=== PATIENT | female | born 1975 | race Caucasian/White ===

== ENCOUNTER 2018-02-03 14:56 | Emergency (ER) | payer BC ==
[2018-02-03] MEDS ORDERED: MORPHINE SULFATE 4 MG/ML DISP.SYRIN. IV ONE (15:30)
[2018-02-03] MEDS ORDERED: ONDANSETRON PF 4 MG/2 ML VIAL. IV ONE (15:30)
--- NOTE | 2018-02-03 15:54 | RAD ---
Three-view left wrist radiographs 02/03/2018 Clinical history: Left wrist pain post fall. Portable AP, lateral and oblique digital radiographs of left wrist were obtained. An acute comminuted fracture the distal left radial metaphysis is seen. Fracture appears to extend into the radiocarpal joint. Moderate dorsal displacement and angulation of the major distal fracture fragment is seen. Fracture fragments are slightly impacted. No additional fracture is noted. Impression: Acute comminuted fracture of the distal left radial metaphysis.
--- NOTE | 2018-02-03 15:57 | RAD ---
Three-view right hand radiographs 02/03/2018 Clinical history: Right hand pain post fall. PA, lateral and oblique digital radiographs of the right hand were obtained. No fracture or dislocation of the right hand is seen. No radiopaque foreign body is noted. Impression: No fracture or dislocation of the right hand is seen.
[2018-02-03] MEDS ORDERED: IV NORMAL SALINE 1,000ML 1,000 ML IV ONE (16:00)
[2018-02-03] MEDS ORDERED: HYDROmorphone PF 2 MG/ML VIAL IV ONE (16:15)
[2018-02-03] MEDS ORDERED: ETOMIDATE 40 MG/20 ML VIAL. IV ONE (16:15)
--- NOTE | 2018-02-03 16:25 | PHYS DOC ---
Past History Past Medical History: No Pertinent History Smoking: Non-smoker Adult General Chief Complaint Chief Complaint: WRIST PAIN HPI HPI 42 year old right-handed female patient states she slipped on ice and landed on her left hand with severe pain in his left wrist and moderate pain in her right , without head injury or loss of consciousness and neurovascular deficit. Treated her pain 10 over 10 and states the pain getting worse with movement. Review of Systems Review of Systems Constitutional: Denies fever or chills [] Eyes: Denies change in visual acuity, redness, or eye pain [] HENT: Denies nasal congestion or sore throat [] Respiratory: Denies cough or shortness of breath [] Cardiovascular: No additional information not addressed in HPI [] GI: Denies abdominal pain, nausea, vomiting, bloody stools or diarrhea [] : Denies dysuria or hematuria [] Musculoskeletal: Denies back pain , reports joint pain [] Integument: Denies rash or skin lesions [] Neurologic: Denies headache, focal weakness or sensory changes [] Endocrine: Denies polyuria or polydipsia [] All other systems were reviewed and found to be within normal limits, except as documented in this note. Current Medications Current Medications Current Medications Medications (Trade) Dose Ordered Sig/Tibmo Start Time Stop Time Status Last Admin Dose Admin Etomidate (Amidate) 10 mg 1X ONCE 02/03/18 16:15 02/03/18 16:16 Hydromorphone HCl (Dilaudid) 2 mg 1X ONCE 02/03/18 16:15 02/03/18 16:16 Morphine Sulfate (Morphine 4mg Syringe) 4 mg 1X ONCE 02/03/18 15:30 02/03/18 16:07 DC 02/03/18 15:25 4 MG Ondansetron HCl (Zofran) 4 mg 1X ONCE 02/03/18 15:30 02/03/18 16:07 DC 02/03/18 15:27 4 MG Sodium Chloride 1,000 ml @ 1,000 mls/hr 1X ONCE 02/03/18 16:00 02/03/18 16:59 Allergies Allergies Allergies Coded Allergies Type Severity Reaction Last Updated Verified No Known Drug Allergies 02/03/18 No Physical Exam Physical Exam Constitutional: Well developed, well nourished, moderate distress, non-toxic appearance. [] HENT: Normocephalic, atraumatic Eyes: PERRLA, EOMI, conjunctiva normal, no discharge. [] Neck: Normal range of motion, no tenderness, supple, no stridor. [] Cardiovascular:Heart rate regular rhythm, no murmur [] Lungs & Thorax: Bilateral breath sounds clear to auscultation [] Abdomen: Bowel sounds normal, soft, no tenderness, no masses, no pulsatile masses. [] Skin: Warm, dry, no erythema, no rash. [] Back: No tenderness, no CVA tenderness. [] Extremities: Left wrist with obvious deformity and tenderness and edema and limited range of motion, normal neurovascular deficit, right hand without deformity, mild tenderness in the thenar area without contusion Neurologic: Alert and oriented X 3, normal motor function, normal sensory function, no focal deficits noted. [] Psychologic: Affect normal, judgement normal, mood normal. [] EKG EKG [] Radiology/Procedures Radiology/Procedures [][place] [address] IMAGING REPORT Signed PATIENT: EDWARD DRAPER ACCOUNT: [id number] : 1975 LOCATION: ER AGE: 42 SEX: F EXAM STATUS: REG ER ORD. PHYSICIAN: BONNIE LUDWIG MD REASON: injury PROCEDURE: HAND RIGHT 3V Three-view right hand radiographs 02/03/2018 Clinical history: Right hand pain post fall. PA, lateral and oblique digital radiographs of the right hand were obtained. No fracture or dislocation of the right hand is seen. No radiopaque foreign body is noted. Impression: No fracture or dislocation of the right hand is seen. DICTATED AND SIGNED BY: DANNY DOE MD DATE: 02/03/18 1554 CC: BONNIE LUDWIG MD; NON,STAFF ~ [address] [address] IMAGING REPORT Signed PATIENT: EDWARD DRAPER ACCOUNT: [id number] : 1975 LOCATION: ER AGE: 42 SEX: F EXAM STATUS: REG ER ORD. PHYSICIAN: BONNIE LUDWIG MD REASON: injury PROCEDURE: WRIST 3V LEFT Three-view left wrist radiographs 02/03/2018 Clinical history: Left wrist pain post fall. Portable AP, lateral and oblique digital radiographs of left wrist were obtained. An acute comminuted fracture the distal left radial metaphysis is seen. Fracture appears to extend into the radiocarpal joint. Moderate dorsal displacement and angulation of the major distal fracture fragment is seen. Fracture fragments are slightly impacted. No additional fracture is noted. Impression: Acute comminuted fracture of the distal left radial metaphysis. DICTATED AND SIGNED BY: DANNY DOE MD DATE: 02/03/18 1433 CC: BONNIE LUDWIG MD; NON,STAFF ~ Course & Med Decision Making Course & Med Decision Making Pertinent Imaging studies reviewed. (See chart for details) Evaluation of patient in ER showed 42-year-old female patient with a fall and left wrist deformity. Patient had comminuted fracture of the distal radius and under conscious sedation reduction performed and splint was applied with good alignment. Patient instructed to follow-up with on-call orthopedic physician in one or 2 days. discharge: I've spoken with the patient and/or caregivers. I've explained the patient's condition, diagnosis and treatment plan based on information available to me at this time. I've answered the patient's and/or caregivers questions and addressed any concerns. The patient and/or caregivers have a good understanding the patient's diagnosis, condition and treatment plan as can be expected at this point. Vital signs have been stabilized. The patient's condition is stable for discharge from the emergency department. The patient will pursue further outpatient evaluation with her primary care provider or other designated consulting physician as outlined in the discharge instructions. Patient and/or caregivers are agreeable to this plan of care and follow-up instructions have been explained in detail. The patient and/or caregivers have received these instructions in written format and expressed understanding of these discharge instructions. The patient and her caregivers are aware that if any significant change in condition or worsening of symptoms should prompt him to immediately return to this of the closest emergency department. If an emergent department is not readily available I would encourage him to call 911. Ele Disclaimer Jenniferon Disclaimer This electronic medical record was generated, in whole or in part, using a voice recognition dictation system. Departure Departure: Impression: Primary Impression: Closed fracture of left distal radius Additional Impressions: Fall due to ice or snow Injury of right hand Disposition: HOME, SELF-CARE (At 1707) Condition: IMPROVED Referrals: NON,STAFF (PCP) Patient Instructions: Radial Fracture Additional Instructions: Follow-up with field professional orthopedic physician at [facility], call [phone] to make an appointment in one or 2 days Apply ice on the affected area Return to emergency room if not getting better Scripts Hydrocodone Bit/Acetaminophen (NORCO 5-325 TABLET) 1 Each Tablet 1 TAB PO PRN Q6HRS Y for PAIN, #30 TAB 0 Refills Prov: BONNIE LUDWIG MD 02/03/18 Ibuprofen (IBUPROFEN) 800 Mg Tablet 1 TAB PO TID, #30 TAB Prov: BONNIE LUDWIG MD 02/03/18 RISKS/ALTERNATIVES Risks/Alternatives Risks and alternatives of this type of sedation and procedure discussed with: RISK/ALTERNATIVES DISCUSSED: Patient H & P ON CHART H & P H & P on chart and reviewed for co-morbid conditions and appropriate labs. H&P ON CHART: Yes STATUS PREG STATUS ASSESSED: Yes MEDS/ALLERGIES REVIEWED Meds/Allergies Reviewed Medications and Allergies including time and route of recently administered narcotics and sedatives. MEDS/ALLERGIES REVIEWED: Yes ASA RATING ASA RATING: I AIRWAY ASSESSMENT Airway Assessment Airway patency, oral function limitations, presence of caps, crowns, dentures, partials, and ability to extend neck assessed. AIRWAY ASSESSMENT: Yes MALLAMPATI SCORE MALLAMPATI SCORE: I PRE-SEDATION ASSESSMENT PRE-SEDATION PHYSICAL: Yes Joint Reduction Procedure Joint Indication: [Left distal radial fracture with deformity] Consent: [yes] Procedure: The pre-reduction exam showed [displaced fracture of left distal radius]. The patient was placed in [45] position. Anesthesia/pain control [ with etomidate 10 mg and Dilaudid 1 mg]. Reduction of the [left distal radial fracture] was performed by [local traction]. Post reduction films [showed improvement of condition]. A post-reduction exam revealed [intact neuro exam. The affected area was immobilized with [OCL splint]. The patient tolerated the procedure [well]. Complications: [none] Problem Qualifiers BONNIE LUDWIG MD Feb 03, 2018 16:25
[2018-02-03] MEDS ORDERED: HYDROmorphone PF 1 MG/ML DISP.SYRIN IV ONE (16:30)
[2018-02-03 16:41] VITALS: BP 122/72
--- NOTE | 2018-02-03 16:44 | RAD ---
Three-view left wrist radiographs 02/03/2018 Clinical history: Post reduction of fractures of the distal left radius. PA, lateral oblique digital radiographs of left wrist were obtained. Comparison study is dated earlier today at 1539 hours. An external cast has been placed around the right forearm and wrist. An acute comminuted fracture is seen involving the distal left radial metaphysis. The alignment of the fracture fragments has improved since the previous examination and is now near-anatomic. No new fracture is seen. Impression: Post reduction radiographs of the left wrist as outlined above.
[2018-02-03] MEDS ORDERED: HYDR-971 PO (17:09)
[2018-02-03] MEDS ORDERED: IBUP800T19 PO (17:09)
== END 2018-02-03 17:25 | disposition home or self-care (01) ==
LOC: ER 14:56
DX: S52.502A Unspecified fracture of the lower end of left radius, initial encounter for closed fracture (principal); S69.91XA Unspecified injury of right wrist, hand and finger(s), initial encounter; W00.0XXA Fall on same level due to ice and snow, initial encounter; Y93.89 Activity, other specified; Y99.8 Other external cause status; Y92.89 Other specified places as the place of occurrence of the external cause
CPT/HCPCS: 25605; 73110; 73130; 96361; 96374; 96375; 99152; J1170; J2270; J2405; 99285-25; J7030